=== PATIENT | female | born 1940 | race Caucasian/White ===

== ENCOUNTER → 2023-10-07 08:25 | Outpatient (CLI) | payer MEDICARE, SELFPAY ==
--- NOTE | 2023-10-07 08:27 | DI.RAD.S_ITS ---
PROCEDURE: XR FOOT RT MIN 3V INDICATIONS: Right foot pain, right EHL and 2nd toe pain TECHNIQUE: 3 views of the foot were acquired. COMPARISON: None. FINDINGS: Bones: No fractures or dislocations. No suspicious bony lesions. There is degenerative change involving the tibiotalar joint and talonavicular joint as well as the 1st MTP and 2nd PIP joints. Soft tissues: No tibiotalar joint effusion. Achilles tendon appears normal. 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 No acute bony abnormality. Dictated by: Isidro Leigh M.D. on 10/07/2023 at 8:59 Approved by: Isidro Leigh M.D. on 10/07/2023 at 9:00
== END ==
PROVIDERS: Referring Provider Physician Assistant Surgical; Visit Provider Physician Assistant Surgical
DX: S99.921A Unspecified injury of right foot, initial encounter (principal); S96.911A Strain of unspecified muscle and tendon at ankle and foot level, right foot, initial encounter; M19.071 Primary osteoarthritis, right ankle and foot; X58.XXXA Exposure to other specified factors, initial encounter
CPT/HCPCS: 73630